=== PATIENT | female | born 1945 | race Caucasian/White ===

== ENCOUNTER → 2018-09-12 | Outpatient (CLI) | payer MEDICARE ==
[~2018-09-12] MED LIST: GABA300; HYDCHL12.5; TRAM50 PO
[2018-09-12 13:06] LABS: Bilirubin, Urine Neg (Neg); Blood, Urine 2+ (Neg); Glucose Qualitative, Urine Neg (Neg); Ketones, Urine Neg (Neg); Leukocyte Esterase, Urine 1+ (Neg); Nitrite, Urine Neg (Neg); Protein, Urine 1+ (Neg); Urobilinogen, Urine NORM (Normal)
[2018-09-12 13:16] LABS: Appearance, Urine Clear (Clear); Color, Urine Yellow (P-Yellow)
[2018-09-12 13:17] LABS: White Blood Cells, Urine 0-2 /hpf (0-5)
[2018-09-12 13:18] LABS: Bacteria Few /hpf; Squamous Epithelial Cells Few /hpf (Few)
== END | disposition home or self-care (01) ==
LOC: LAB SHORT 12:33 → LAB 12:33
PROVIDERS: Family Medicine
DX: R33.9 Retention of urine, unspecified (principal)
CPT/HCPCS: 81001; 87086

== ENCOUNTER 2019-11-19 06:20 | Day surgery (SDC) | payer MEDICARE ==
[~2019-11-19] VITALS: Ht 160 cm; Wt 62.6 kg
[~2019-11-19 06:20] MED LIST changes: +CALCITRATE200 M1 PO; -GABA300; +GABA300 PO; +ONDA4 PO; +VITAMIN D33000 UNIT PO; +[UNRECOGNIZED DRUG - OTHER] PO
== END 2019-11-19 08:07 | disposition home or self-care (01) ==
LOC: ORSCSDS 06:20
PROVIDERS: Ophthalmology
PROC: 08RK3JZ Replacement of Left Lens with Synthetic Substitute, Percutaneous Approach (ICD-10-PCS; principal; 2019-11-19 07:30)
DX: H25.12 Age-related nuclear cataract, left eye (principal); Z79.899 Other long term (current) drug therapy
CPT/HCPCS: J2001; J2250; J3010; J7040; V2632

== ENCOUNTER 2020-01-21 06:59 | Day surgery (SDC) | payer MEDICARE ==
[~2020-01-21] VITALS: Ht 155 cm; Wt 62.6 kg
[~2020-01-21 06:59] MED LIST changes: +IBUP400 PO
--- NOTE | 2020-01-21 08:20 | NUR ---
01/21/20 0820 Ivette Almodovar History, Chart, Medications and Allergies reviewed before start of procedure.PATIENT DETERMINED TO BE ASA APPROPRIATE FOR PROPOFOL SEDATION PRIOR TO START OF PROCEDURE BY .MONITOR INTACT WITH CONTINUOUS PULSE OXIMETRY AND INTERMITTENT BP.O2 VIA N/C INTACT THROUGHOUT SEDATION/PROCEDURE.3-LEAD EKG REVIEWED WITH PHYSICIAN PRIOR TO START OF PROCEDURE.
--- NOTE | 2020-01-21 08:43 | NUR ---
PT ARRIVED TO RECOVERY AREA VIA [facility] REPORT FROM VICKEY GUAMAN, PT A/O X 4, PLEASANT, DENIES N/V DENIES PAIN. VSS. DR VI XIAO ON PT. PERIPHERAL IV REMOVED WNL. 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
== END 2020-01-21 23:10 | disposition home or self-care (01) ==
LOC: ORSCMMR 06:59 → ORD 08:00 → ORSCMMR 08:00
PROVIDERS: Internal Medicine Gastroenterology
PROC: 0DBK8ZX Excision of Ascending Colon, Via Natural or Artificial Opening Endoscopic, Diagnostic (ICD-10-PCS; principal; 2020-01-21 08:00)
PROC: 0DB98ZX Excision of Duodenum, Via Natural or Artificial Opening Endoscopic, Diagnostic (ICD-10-PCS; principal; 2020-01-21 08:00)
PROC: 0DB68ZX Excision of Stomach, Via Natural or Artificial Opening Endoscopic, Diagnostic (ICD-10-PCS; principal; 2020-01-21 08:00)
DX: Z85.048 Personal history of other malignant neoplasm of rectum, rectosigmoid junction, and anus (principal); D12.2 Benign neoplasm of ascending colon; E61.1 Iron deficiency; Z79.82 Long term (current) use of aspirin; Z79.899 Other long term (current) drug therapy
CPT/HCPCS: 88305; 88342; J2704; J7120

== ENCOUNTER 2022-06-17 09:05 | Day surgery (SDC) | payer MEDICARE ==
[~2022-06-17] VITALS: Ht 157.5 cm; Wt 58.9 kg
--- NOTE | 2022-06-17 11:56 | NUR ---
06/17/22 1156 August Mitchell I PRIOR TO ARRIVING IN THE OR PATIENT RECEIVED ICG IN THE PREOP SETTING PER AT 0938.
--- NOTE | 2022-06-17 13:55 | NUR ---
Patient up to Ambulate independently. Gait STABLE PER BASELINE. PT HAS SIGNIFICANT LOWER LEG EDEMA. D/C TO HOME WITH
== END 2022-06-17 22:55 | disposition home or self-care (01) ==
LOC: ORSCMMR 09:05 → ORD 10:30 → ORSCMMR 10:30
PROVIDERS: Surgery
PROC: 0FT44ZZ Resection of Gallbladder, Percutaneous Endoscopic Approach (ICD-10-PCS; principal; 2022-06-17 10:30)
PROC: 8E0W4CZ Robotic Assisted Procedure of Trunk Region, Percutaneous Endoscopic Approach (ICD-10-PCS; principal; 2022-06-17 10:30)
DX: K81.1 Chronic cholecystitis (principal); Z85.038 Personal history of other malignant neoplasm of large intestine; G62.9 Polyneuropathy, unspecified; Z79.899 Other long term (current) drug therapy
CPT/HCPCS: 47562; S2900; 88304; A9270; J0694; J1100; J1885; J2250; J2370; J2405; J2704; J2795; J3010; J7120

== ENCOUNTER 2024-06-05 09:22 | Emergency (ER) | payer MEDICARE ==
[~2024-06-05] VITALS: Ht 160 cm; Wt 59.0 kg
[2024-06-05] MEDS ORDERED: Lactated Ringer's 1,000 ML IV SCH (10:15)
[2024-06-05 11:05] LABS: Hematocrit 35.8 % (33.0-51.0); Hemoglobin 11.9 g/dL (11.5-16.0); Mean Corpuscular HGB 28.7 pg (26.0-34.0); Mean Corpuscular HGB Conc 33.2 g/dL (31.5-36.5); Mean Corpuscular Volume 86 fL (80-100); Mean Platelet Volume 10.3 fL (9.1-12.4); Platelet Count 267 K/mm3 (150-400); RDW Coefficient Variation 14.2 % (11.7-14.2); RDW Standard Deviation 45.4 fL (35.1-46.3); Red Blood Cell Count 4.15 M/mm3 (3.80-5.20); White Blood Cell Count 15.95 K/mm3 (4.00-11.30)
[2024-06-05 11:11] LABS: D-Dimer, Quantitative 3.47 mg/L FEU (0.00-0.52); International Normalized Ratio 1.07; Prothrombin Time Results 11.4 Sec (9.7-11.5)
[2024-06-05 11:21] LABS: Albumin, Blood 2.7 g/dL (3.4-5.0); Albumin/Globulin Ratio 0.7 (0.8-1.8); Bilirubin, Total 1.7 mg/dL (0.1-1.0); Calcium, Blood 9.3 mg/dL (8.5-10.1); Creatinine, Blood 0.57 mg/dL (0.40-1.00); Globulin, Blood 3.7 g/dL (2.2-4.0); Potassium, Blood 3.1 mmol/L (3.5-5.5); Total Protein, Blood 6.4 g/dL (6.4-8.2)
[2024-06-05] MEDS ORDERED: CefTRIAXone Sodium 1,000 MG in NS 100 ML IV ONE (12:35)
[2024-06-05] MEDS ORDERED: Azithromycin 500 MG in NS 250 ML IV ONE (12:35)
[2024-06-05 13:38] LABS: BAND PERCENT MAN 35 % (0-8); BASOPHILS ABSOLUTE MAN 0.15 K/mm3 (0.00-0.23); BASOPHILS PERCENT MAN 1 % (0-2); EOSINOPHILS PERCENT MAN 0 % (0-6); LYMPHOCYTES ABSOLUTE MAN 0.31 K/mm3 (0.84-5.20); LYMPHOCYTES PERCENT MAN 2 % (21-46); MONOCYTES ABSOLUTE MAN 0.47 K/mm3 (0.16-1.47); MONOCYTES PERCENT MAN 3 % (4-13); NEUTROPHILS ABSOLUTE MAN 14.99 K/mm3 (1.96-9.15); SEG NEUTROPHILS PERCENT MAN 59 % (41-73); TOTAL CELLS COUNTED 100
[2024-06-05] MEDS ORDERED: Vancomycin HCL 2,000 MG in NS 520 ML IV ONE (13:50)
[2024-06-05] MEDS ORDERED: LEVAQUIN750 MG PO (14:06)
[2024-06-05] MEDS ORDERED: MetroNIDAZOLE 500MG/NS 100 ml 100 ML IV ONE (14:10)
[2024-06-05 15:15] VITALS: BP 122/72
[2024-06-05 15:42] LABS: Influenza A, PCR NEGATIVE (NEGATIVE); Influenza B, PCR NEGATIVE (NEGATIVE); Resp Syncytial Virus, PCR NEGATIVE (NEGATIVE); SARS-Cov-2 (COVID-19) PCR, MMC NEGATIVE (NEGATIVE)
== END 2024-06-05 15:25 | disposition home or self-care (01) ==
LOC: ER 09:22
PROVIDERS: Student in an Organized Health Care Education/Training Program
DX: J18.9 Pneumonia, unspecified organism (principal); Z85.048 Personal history of other malignant neoplasm of rectum, rectosigmoid junction, and anus
CPT/HCPCS: 0241U; 71045; 71260; 80053; 83880; 84484; 85025; 85379; 85610; 93005; 93010; 96361; 96361-59; 96365-59; 96367-59; 99285-25; J0456; J0696; J3370; J7040; J7050; J7120; Q9967